=== PATIENT | male | born 1960 | race Two or more races ===

== ENCOUNTER 2024-06-27 08:57 | Emergency (ER) | payer MEDICARE, MEDICAID, SELFPAY ==
[2024-06-27 09:14] VITALS: BP 178/101; PULSE 60; RESP 20; TEMP 36.9; O2SAT 96; BMI 27.3
--- NOTE | 2024-06-27 10:16 | PD.EDWOUND ---
ED Wound/Laceration-RME/HPI General Chief Complaint: Wound/Laceration Stated Complaint: CUT LEFT INDEX FINGER LAST NIGHT Time Seen by Provider: 06/27/24 09:01 Arrival date/time: 06/27/24 08:57 64-year-old male presents to the emergency department today send he was cutting meat last night patient reports he cut his finger patient had a laceration to the palmar aspect of left index finger Limitations: no limitations Related Data Home Medications ?Medication ?Instructions ?Recorded ?Confirmed amiodarone 200 mg tablet 200 mg PO QDAY 12/11/17 03/15/20 atorvastatin 20 mg tablet 20 mg PO QDAY 12/11/17 03/15/20 digoxin 125 mcg (0.125 mg) tablet 125 mcg PO QDAY 12/11/17 03/15/20 enalapril maleate 5 mg tablet 5 mg PO BID 12/11/17 03/15/20 rivaroxaban 20 mg tablet (Xarelto) 20 mg PO QDAY 12/11/17 03/15/20 carvedilol 25 mg tablet 25 mg PO BID 10/27/19 03/15/20 Previous Rx's ?Medication ?Instructions ?Recorded cephalexin 500 mg capsule 500 mg PO BID 7 days #14 caps 06/27/24 Allergies Allergy/AdvReac Type Severity Reaction Status Date / Time No Known Allergies Allergy Verified 06/27/24 08:58 Review of Systems Review of Systems Systems Reviewed: All systems reviewed, normal except as documented Constitutional Constitutional: Reports system reviewed and no additional complaints, except as documented, Denies fever(s) and Denies headache(s) Eyes Eyes: Reports system reviewed and no additional complaints, except as documented and Denies blurry vision ENT Ears, Nose, Mouth, and Throat: Reports system reviewed and no additional complaints, except as documented, Denies headache(s), Denies nasal congestion and Denies nasal discharge Cardiovascular Cardiovascular: Reports system reviewed and no additional complaints, except as documented, Denies chest pain and Denies dyspnea Respiratory Respiratory: Reports system reviewed and no additional complaints, except as documented, Denies chest congestion, Denies cough and Denies dyspnea Gastrointestinal Gastrointestinal: Reports system reviewed and no additional complaints, except as documented and Denies abdominal pain Integumentary/Breasts Skin/Breast: Reports system reviewed and no additional complaints, except as documented, Denies rash and Reports wounds Neurologic Neurologic: Reports system reviewed and no additional complaints, except as documented, Reports as per HPI and Denies headache(s) Past Medical History Past Medical History NEUROLOGIC: Negative Neurological Disorders CARDIAC: Negative Cardiac Disorders ED Exam General Limitations: Present no limitations General appearance: Present alert and in no apparent distress Head Head exam: Present atraumatic Eye Eye exam: Present normal appearance, PERRL and EOMI ENT ENT exam: Present normal exam, normal oropharynx and mucous membranes moist Neck Neck exam: Present normal inspection, full ROM and trachea midline Chest Chest inspection: Present normal inspection and symmetric chest wall rise Respiratory Respiratory exam: Present normal lung sounds bilaterally Cardiovascular Cardiovascular exam: Present regular rate, normal rhythm and normal heart sounds Abdominal Exam Abdominal exam: Present soft and normal bowel sounds Extremities Exam Extremities exam: Present full ROM, tenderness, normal capillary refill and other (Laceration left index finger); Absent joint swelling Back Exam Back exam: Present normal inspection and full ROM Neurological Exam Neurological exam: Present alert, oriented X3 and CN II-XII intact Psychiatric Psychiatric exam: Present normal affect and normal mood Skin Skin exam: Present warm, dry and other (Laceration left index finger proximally 4 cm no evidence of tendon or ligamentous injury full ROM) Course Quality Measures none Orders Category Date Time Status Set Up Suture Tray STAT Care 06/27/24 10:15 Active Wound Care NOW Care 06/27/24 10:15 Active Lidocaine 1% 20 ml [Xylocaine 1% 20 ML] Med 06/27/24 10:15 Discontinued 20 ml INFL X1 ONE Tet,Diphth,Pertuss(Acell)-Tdap [Boostrix Vacc] Med 06/27/24 10:15 Discontinued 0.5 ml IMI .ONCE ONE Vital Signs Vital signs: Vital Signs Temperature 98.4 F 06/27/24 09:14 Pulse Rate 60 06/27/24 09:14 Respiratory Rate 20 06/27/24 09:14 Blood Pressure 178/101 H 06/27/24 09:14 Pulse Oximetry (%) 96 06/27/24 09:14 Oxygen Delivery Method Room Air 06/27/24 09:14 Saturation O2 saturation 96% room air within normal limits Procedures -ED Laceration Laceration 1: Site: hand Side (If applicable): left Size (cm): 4 Description: linear Depth: simple, single layer Local Anesthetic: lidocaine 1% Amount of anesthesia used (mL): 8 Pre-repair: wound explored and irrigated extensively Skin layer closed with: nylon Size (cm): 3-0 Number of sutures: 7 Technique: simple, interrupted Wound / Laceration MDM Narrative MDM Narrative:: 64-year-old male presents to the emergency department today send he was cutting meat last night patient reports he cut his finger patient had a laceration to the palmar aspect of left index finger On exam laceration irrigated copiously laceration repaired no bleeding time of discharge Tetanus updated patient discharged home antibiotics Patient discharged home in no distress to follow-up with primary care doctor in the next 24 to 48 hours and for any worsening symptoms to return to the ER immediately Patient data External records reviewed:: [facility] previous records Clinical information provided by:: patient Social determinants that could affect healthcare access:: none Patient has the following chronic illnesses:: None How is presenting disease/condition affected by chronic disease/condition?: no chronic disease Evaluation data The following diagnostics were reviewed and interpreted by me:: other (specify) (N/A) Lab and/or radiology exams considered but not ordered:: Consider not indicated Interpretation Summary: N/A Medications / Prescriptions Medications or Prescriptions considered but not ordered:: Given Medication administrations:: Medication Administration History Discontinued Medications Diphtheria/Tetanus/Acell Pertussis (Diphth,Pertuss(Acell),Tet Vac 0.5 Ml Vial) 0.5 ml IMi .ONCE ONE Stop: 06/27/24 10:16 Last Admin: 06/27/24 10:32 Dose: 0.5 ml Documented By: YURIY Lidocaine HCl (Lidocaine Hcl 1% 20 Ml Vial) 20 ml INFL X1 ONE Stop: 06/27/24 10:16 Last Admin: 06/27/24 10:32 Dose: 20 ml Documented By: YURIY Given Consultations Consultation(s) initiated? (list below): No Diagnosis Wound Differential Diagnosis: laceration, abrasion and avulsion of skin Most likely diagnosis given after review of the tests above:: Laceration Admission Indicated Admission indicated?: not indicated Admission Request Was there a request for admission?: No Disposition Plan Disposition Plan: Discharge Discharge Attestation Discharge Attestation: The patient and all family members were given an opportunity to ask questions and understood the discharge instructions. Discharge instructions specifically effects, indications for sooner follow up or return to the emergency department, and the expected course of current diagnosis. Patient condition: Stable Discharge Plan Plan Patient Disposition: HOME (Self Care) Disposition Comment: Stable Prescriptions/Referrals Prescriptions/Med Rec: New cephalexin 500 mg capsule 500 mg PO BID 7 Days Qty: 14 0RF No Action amiodarone 200 mg Tablet 200 mg PO QDAY digoxin 125 mcg Tablet 125 mcg PO QDAY Xarelto 20 mg Tablet 20 mg PO QDAY Hold Instructions: Resume on 10/30/19. Doctor's Order atorvastatin 20 mg Tablet 20 mg PO QDAY enalapril maleate 5 mg Tablet 5 mg PO BID carvedilol 25 mg Tablet 25 mg PO BID Problem List Clinical Impression: Laceration of left index finger Patient/Caregiver Discharge Instructions Education Materials: ED Laceration: All Closures Additional Instructions: Please follow up with your primary care doctor in the next 24-48hrs for any worsening symptoms return here immediately Please have sutures removed in 10 days Print Language: Yoruba Stand Alone Forms: [facility] Award Info., Patient Portal Info Letter Vaccines Vaccines Given During Stay: TDaP PA/SUPERVISOR AREA Supervising Physician PA/SUPERVISOR AREA Supervising Physician: Dr ortiz
[2024-06-27] MEDS: DIPHTH,PERTUSS(ACELL),TET VAC 0.5 ML VIAL IMi (10:32)
[2024-06-27] MEDS: LIDOCAINE HCL 1% 20 ML VIAL INFL (10:32)
== END 2024-06-27 10:46 | disposition home or self-care (01) ==
LOC: SERX 10:19
PROVIDERS: Emergency Provider Emergency Medicine
DX: S61.211A Laceration without foreign body of left index finger without damage to nail, initial encounter (principal); W45.8XXA Other foreign body or object entering through skin, initial encounter; Y93.G1 Activity, food preparation and clean up; Z23 Encounter for immunization
CPT/HCPCS: 12002; 90471; 90715; 99283; J3490

== ENCOUNTER → 2025-01-22 | Outpatient (CLI) | payer MEDICARE, MEDICAID, SELFPAY ==
--- NOTE | 2025-01-22 14:33 | XR_ITS ---
Examination: CT abdomen and pelvis without contrast. Coronal 3-D reconstructions. Sagittal 2-D reconstructions. Date and time of exam:January 22, 2025 CT 16 hours INDICATIONS: Elevated PSA and laboratory examination this week CTDI: vol (mGy): 8.40 DLP: (mGycm): 525. Technique: Axial images of the abdomen have been obtained, 3 mm slice thickness Intravenous contrast material has not been administered. Low dose protocols were performed. One or more of the following dose reduction techniques were used; automated exposure control, adjustment of the mA and/or KV according to patient size, use of iterative reconstruction technique. Findings: Liver is irregular in contour, no focal liver lesions Gallstones No pancreatic or adrenal mass Moderate renal parenchymal scar formation, no hydronephrosis Aortic calcification no aneurysmal dilatation 15 mm fat-containing umbilical hernia No pericecal inflammatory change Colonic diverticulosis, no diverticulitis Normal seminal vesicles No prostatomegaly, transverse prostate dimension 3.6 cm No pelvic lymphadenopathy Urinary bladder wall is thickened up to 7 mm Grade 1 spondylolisthesis L5 on S1 Chronic osteoporotic compression L2 No findings diagnostic for osteoblastic metastatic disease. IMPRESSION: Primary hepatocellular disease versus cirrhosis No abdominal or pelvic lymphadenopathy. No prostatomegaly Urinary bladder wall thickening up to 7 mm, differential would include cystitis, or a bladder carcinoma not excluded, advise follow-up
== END | disposition home or self-care (01) ==
PROVIDERS: PCP Physician Assistant; Referring Provider Physician Assistant; Visit Provider Physician Assistant
DX: N32.89 Other specified disorders of bladder (principal); K76.9 Liver disease, unspecified
CPT/HCPCS: 74176

== ENCOUNTER → 2025-02-26 | Outpatient (CLI) | payer MEDICARE, MEDICAID, SELFPAY ==
[2025-03-01 11:20] LABS: PSA, Free 5.29 ng/mL; PSA, Total 96.9 ng/mL (< OR = 4.0)
== END | disposition home or self-care (01) ==
PROVIDERS: PCP Physician Assistant; Referring Provider Physician Assistant; Visit Provider Physician Assistant
DX: R97.20 Elevated prostate specific antigen [PSA] (principal)
CPT/HCPCS: 36415; 84153; 84154

== ENCOUNTER → 2025-03-30 | Outpatient (CLI) | payer MEDICARE, MEDICAID, SELFPAY ==
[2025-03-30 09:26] LABS: Basophils # (Auto) 0.1 Thou/mm3 (0.0-0.2); Basophils % (Auto) 1 % (0-2.5); Eosinophils # (Auto) 0.1 Thou/mm3 (0.0-0.5); Eosinophils % (Auto) 2 % (0-10); Hematocrit 43.7 % (41.0-53.0); Hemoglobin 15.2 g/dL (13.5-16.0); Immature Granulocytes Auto 0.01 Thou/mm3 (0.00-0.00); Lymphocytes # (Auto) 2.5 Thou/mm3 (1.0-4.8); Lymphocytes % (Auto) 44 % (10-50); Mean Corpuscular HGB Conc 34.8 g/dl (31.0-37.0); Mean Corpuscular Hemoglobin 35.3 pg (25.0-35.0); Mean Corpuscular Volume 101 fL (80-100); Monocytes # (Auto) 1.0 Thou/mm3 (0.0-0.8); Monocytes % (Auto) 18 % (0-12); Neutrophils # (Auto) 1.9 Thou/mm3 (1.8-7.7); Neutrophils % (Auto) 35 % (37-80); Nucleated Red Blood Cell # 0.00 Thou/mm3 (0.00-0.00); Nucleated Red Blood Cell % 0 /100 WBC (0); Platelet Count 166 Thou/mm3 (140-440); RDW Standard Deviation 44.1 fL (35.1-43.9); Red Blood Count 4.31 Miln/mm3 (4.50-5.90); White Blood Count 5.6 Thou/mm3 (3.8-10.6)
[2025-03-30 09:32] LABS: B-Type Natriuretic Peptide 54 pg/mL (0-100)
[2025-03-30 09:54] LABS: Alanine Aminotransferase 25 U/L (10-49); Albumin, Serum 4.1 gm/dL (3.4-4.8); Alkaline Phosphatase 97 U/L (46-116); Anion Gap 8 (7-16); Aspartate Amino Transferase 40 U/L (0-34); BUN/Creatinine Ratio 9 Ratio (12-20); Bilirubin,Direct 0.2 mg/dL (0.0-0.3); Bilirubin,Total 0.8 mg/dL (0.3-1.2); Blood Urea Nitrogen 7 mg/dL (9-23); Calcium 9.4 mg/dL (8.3-10.6); Carbon Dioxide 30.8 mMol/L (20.0-31.0); Cardiac Risk Estimate 2.7 RATIO (4.0-6.7); Chloride 101 mMol/L (98-107); Cholesterol 159 mg/dL (132-200); Creatinine (Component) 0.8 mg/dL (0.6-1.3); Free T4 (Free Thyroxine) 1.24 ng/dL (0.89-1.76); Glucose 95 mg/dL (74-106); HDL Cholesterol 58 mg/dL (40-60); LDL Cholesterol,Calculated 78 mg/dL (0-130); Osmolality,Calculated 277 (275-295); Potassium 4.8 mMol/L (3.4-5.1); Sodium 140 mMol/L (136-145); Thyroid Stimulating Hormone 1.65 uIU/mL (0.55-4.78); Total Protein 7.2 gm/dL (5.7-8.2); Triglycerides 116 mg/dL (30-150); eGFR > 60 See Note
[2025-03-30 10:06] LABS: Digoxin 0.7 ng/mL (0.8-2.0)
== END | disposition home or self-care (01) ==
LOC: COPL 08:08
PROVIDERS: PCP Physician Assistant; Referring Provider Internal Medicine Cardiovascular Disease; Visit Provider Internal Medicine Cardiovascular Disease
DX: I11.0 Hypertensive heart disease with heart failure (principal); I50.9 Heart failure, unspecified; E78.5 Hyperlipidemia, unspecified; I48.0 Paroxysmal atrial fibrillation
CPT/HCPCS: 36415; 80048; 80061; 80076; 80162; 83880; 84439; 84443; 85025